=== PATIENT | male | born 1975 | race Caucasian/White ===

== ENCOUNTER 2023-04-09 18:24 | Emergency (ER) | payer OTHER ==
[~2023-04-09] VITALS: Ht 172.7 cm; Wt 89.1 kg
[~2023-04-09 18:24] MED LIST: FLEXERIL 1010 MG/TAB PO
[2023-04-09 18:59] VITALS: TEMP 98.1
[2023-04-09 21:21] LABS: BASO # 0.1 K/mm3 (0.0-0.2); BASO % 0.9 % (0.0-2.0); EOS # 0.1 K/mm3 (0.0-0.7); GRAN # 3.6 K/mm3 (1.4-6.5); GRAN % 54.6 % (42.2-75.2); HEMOGLOBIN 15.4 g/dl (13.5-18.0); LYMPH # 2.1 K/mm3 (1.2-3.4); LYMPH % 31.5 % (20.0-51.0); MEAN CELL VOLUME 90 fl (80.0-100.0); MEAN CORPUSCULAR HEMOGLOBIN 31 pg (27-31); MEAN CORPUSCULAR HGB CONC 35 g/dl (33.0-37.0); MEAN PLATELET VOLUME 9.5 fl (7.4-10.4); MONO # 0.7 K/mm3 (0.1-0.6); MONO % 10.8 % (1.7-9.3); PLATELET COUNT 245 K/mm3 (130-400); RED BLOOD COUNT 4.91 M/mm3 (4.20-5.60); REDCELL DISTRIBUTION WIDTH-CV 12.5 % (11.5-14.5)
[2023-04-09] MEDS ORDERED: Silver Nitrate Applicator 1 Stick TP ONE (21:30)
[2023-04-09 21:47] LABS: ALBUMIN 3.9 gm/dL (3.5-5.0); BILIRUBIN,TOTAL 0.9 mg/dL (0.2-1.2); CALCIUM 9.4 mg/dL (8.4-10.2); CREATININE, serum 1.26 mg/dL (0.72-1.25); POTASSIUM 3.7 mmol/L (3.5-4.5); TOTAL PROTEIN 7.2 gm/dL (6.2-8.1)
[2023-04-09] MEDS ORDERED: ANUSOL HC CREAM30 GM TP (21:58)
[2023-04-09] MEDS ORDERED: COLACE 100100 MG/CAP PO (21:58)
[2023-04-09 22:01] VITALS: BP 146/93; PULSE 80
== END 2023-04-09 22:18 | disposition home or self-care (01) ==
LOC: COL.ER 18:24
PROVIDERS: Personal Emergency Response Attendant
DX: K64.4 Residual hemorrhoidal skin tags (principal)